=== PATIENT | female | born 1970 ===

== ENCOUNTER → 2021-04-18 10:52 | Outpatient (CLI) | payer OTHER | END | disposition home or self-care (01) | LOC: MRI 10:52 | PROVIDERS: ATTEND Orthopaedic Surgery | DX: M25.561 Pain in right knee (principal); M25.562 Pain in left knee | CPT/HCPCS: 73721 ==

== ENCOUNTER → 2021-04-18 13:51 | Outpatient (CLI) | payer OTHER | END | disposition home or self-care (01) | LOC: NUCLEAR 13:45 | DX: M81.0 Age-related osteoporosis without current pathological fracture (principal) ==

== ENCOUNTER 2021-05-12 07:41 | Outpatient (CLI) | payer OTHER | END 2021-05-12 07:58 | disposition home or self-care (01) | LOC: MAMO-SONO 07:41 | PROVIDERS: ATTEND Internal Medicine | DX: K80.80 Other cholelithiasis without obstruction (principal); Z12.31 Encounter for screening mammogram for malignant neoplasm of breast; Z13.820 Encounter for screening for osteoporosis; R10.84 Generalized abdominal pain ==

== ENCOUNTER 2021-09-01 07:08 | Outpatient (CLI) | payer OTHER | END 2021-09-01 07:22 | disposition home or self-care (01) | LOC: SONOGRAMA 07:08 | PROVIDERS: ATTEND Internal Medicine Endocrinology, Diabetes & Metabolism | DX: E04.2 Nontoxic multinodular goiter (principal) ==

== ENCOUNTER 2022-05-13 07:33 | Outpatient (CLI) | payer OTHER | END 2022-05-13 08:00 | disposition home or self-care (01) | LOC: MAMO-SONO 07:33 | PROVIDERS: ATTEND Internal Medicine | DX: N63.0 Unspecified lump in unspecified breast (principal); Z12.31 Encounter for screening mammogram for malignant neoplasm of breast; Z13.820 Encounter for screening for osteoporosis ==

== ENCOUNTER 2022-10-15 07:20 | Outpatient (CLI) | payer OTHER | END 2022-10-15 07:40 | disposition home or self-care (01) | LOC: SONOGRAMA 07:20 | PROVIDERS: ATTEND Orthopaedic Surgery Hand Surgery | DX: G56.03 Carpal tunnel syndrome, bilateral upper limbs (principal) ==

== ENCOUNTER 2023-07-15 07:07 | Outpatient (CLI) | payer OTHER | END 2023-07-15 13:39 | disposition home or self-care (01) | LOC: MAMO-SONO 07:07 | PROVIDERS: ATTEND Internal Medicine | DX: Z12.31 Encounter for screening mammogram for malignant neoplasm of breast (principal); Z13.820 Encounter for screening for osteoporosis ==

== ENCOUNTER 2023-07-15 08:11 | Outpatient (CLI) | payer OTHER | END 2023-07-15 08:15 | disposition home or self-care (01) | LOC: NUCLEAR 08:11 | PROVIDERS: ATTEND Internal Medicine | DX: R92.2 Inconclusive mammogram (principal); Z13.820 Encounter for screening for osteoporosis ==

== ENCOUNTER 2024-04-27 12:27 | Outpatient (CLI) | payer OTHER | END 2024-04-27 12:35 | disposition home or self-care (01) | LOC: RAD 12:27 | PROVIDERS: ATTEND Internal Medicine | DX: M54.2 Cervicalgia (principal) ==

== ENCOUNTER 2024-06-16 10:29 | Outpatient (CLI) | payer OTHER | END 2024-06-16 10:43 | disposition home or self-care (01) | LOC: RAD 10:29 | PROVIDERS: ATTEND Podiatrist | DX: M77.9 Enthesopathy, unspecified (principal); M72.2 Plantar fascial fibromatosis ==

== ENCOUNTER 2024-07-19 10:37 | Outpatient (CLI) | payer OTHER | END 2024-07-19 10:44 | disposition home or self-care (01) | LOC: MAMO-SONO 10:37 | PROVIDERS: ATTEND Internal Medicine | DX: Z12.31 Encounter for screening mammogram for malignant neoplasm of breast (principal); Z13.820 Encounter for screening for osteoporosis; E04.2 Nontoxic multinodular goiter ==

== ENCOUNTER 2024-09-22 08:58 | Outpatient (CLI) | payer OTHER | END 2024-09-22 09:08 | disposition home or self-care (01) | LOC: SONOGRAMA 08:58 | PROVIDERS: ATTEND General Practice | DX: M75.00 Adhesive capsulitis of unspecified shoulder (principal); M67.813 Other specified disorders of tendon, right shoulder ==

== ENCOUNTER 2025-01-15 09:36 | Outpatient (CLI) | payer OTHER | END 2025-01-15 09:40 | disposition home or self-care (01) | LOC: RAD 09:36 | PROVIDERS: ATTEND Internal Medicine | DX: M54.50 Low back pain, unspecified (principal) ==

== ENCOUNTER 2025-07-23 07:09 | Outpatient (CLI) | payer OTHER | END 2025-07-23 07:13 | disposition home or self-care (01) | LOC: MAMO-SONO 07:09 | PROVIDERS: ATTEND Internal Medicine | DX: N63.0 Unspecified lump in unspecified breast (principal); Z12.31 Encounter for screening mammogram for malignant neoplasm of breast; Z13.820 Encounter for screening for osteoporosis ==

== ENCOUNTER 2025-07-23 08:48 | Outpatient (CLI) | payer OTHER | END 2025-07-23 08:49 | disposition home or self-care (01) | LOC: NUCLEAR 08:48 | PROVIDERS: ATTEND Internal Medicine | DX: Z13.820 Encounter for screening for osteoporosis (principal); M81.0 Age-related osteoporosis without current pathological fracture ==